=== PATIENT | male | born 1960 | race Hispanic/Latino ===

== ENCOUNTER 2019-06-13 07:28 | Day surgery (SDC) | payer OTHER ==
[2019-06-13] VITALS (7 sets, daily range): BP systolic 130–173; BP diastolic 58–94
[~2019-06-13] VITALS: Ht 162.6 cm; Wt 167.8 kg
[~2019-06-13 07:28] MED LIST: DUCOSATE; LOSA1TAB37 PO
[2019-06-13] MEDS ORDERED: SODIUM CHLORIDE 0.9% 1000ML 1,000 ML IV ONE (08:57)
[2019-06-13] MEDS ORDERED: PROPOFOL 10 MG/ML 20ML VIAL IV ONE (11:58)
--- NOTE | 2019-06-13 12:40 | NUR ---
dc pt dc home via [place], no distress noted. denied any pain [email or web address] discomforts. accompanied by family
== END 2019-06-13 12:40 | disposition home or self-care (01) ==
LOC: DAH 07:28
PROVIDERS: ATTEND Surgery
DX: K21.9 Gastro-esophageal reflux disease without esophagitis (principal); K44.9 Diaphragmatic hernia without obstruction or gangrene; I10 Essential (primary) hypertension; E66.01 Morbid (severe) obesity due to excess calories; Z79.899 Other long term (current) drug therapy; Z68.44 Body mass index [BMI] 60.0-69.9, adult
CPT/HCPCS: 43235; A4606; J2704; J7030